=== PATIENT | female | born 1985 | race Caucasian/White ===

== ENCOUNTER 2018-09-12 08:42 | Emergency (ER) | payer OTHER ==
[2018-09-12 08:47] VITALS: BP 115/82; PULSE 77; TEMP 98.4; BMI 29.7
--- NOTE | 2018-09-12 08:58 | PDOC ---
History of Present Illness - General Chief Complaint: Abscess Boil Stated Complaint: BOIL BETWEEN BUTTOCKS. Time Seen by Provider: 09/12/18 08:49 - History of Present Illness Initial Comments: 09/12/18 09:22 Chief complaint: Swelling and pain anal area, difficulty defecating History of present illness: For several days the patient has noticed a lump in the area of her anus. It is painful and tender, especially with attempted bowel movement. No bleeding Review of systems: No fever/chills, abdominal pain, nausea, vomiting, diarrhea, urinary tract symptoms, vaginal bleeding or discharge Past medical history: Healthy female, no active medical problems. Similar swelling approximately 8 years ago. No surgery Social/family history reviewed and noncontributory Physical exam: Alert and oriented well-developed well-nourished no acute distress cheerful and cooperative Afebrile, vital signs normal Abdomen soft nontender without mass or organomegaly. Bowel sounds normal. Nondistended Rectal exam: Approximately 2 cm thrombosed external hemorrhoid at 12:00. Tender. No evidence of bleeding. No other mass or abscess. Impression: Thrombosed external hemorrhoid Plan: Discuss medical treatment and incision and drainage. The patient elects to forego surgical drainage of present, try medication, and follow-up as necessary if the medication is unsuccessful. She is advised sitz baths, stool softeners, and rectal preparations with cortisone to try to shrink the hemorrhoid. Given referral to Dr. Powell of surgery for follow-up as necessary. Fully ambulatory and in no acute pain or other distress upon discharge to follow -up as directed Past History - Past Medical History Allergies/Adverse Reactions: Allergies Allergy/AdvReac Type Severity Reaction Status Date / Time No Known Drug Allergies Allergy Verified 09/12/18 08:44 Home Medications: Ambulatory Orders No Home Medications 0 dose .ROUTE UTDICT 08/05/12 Docusate Sodium [Colace] 100 mg PO TID #15 capsule 09/12/18 Hydrocortisone 2.5% Topical Cr [Anusol 2.5% Hc Cream -] 1 applic RC BID #1 tube 09/12/18 Hydrocortisone Acetate [Anusol Hc Suppository -] 25 mg RC BID #10 supp.rect 08/28 Polyethylene Glycol 3350 [Miralax (For Daily Use) -] 17 gm PO DAILY #1 bottle Asthma: No Cancer: No Cardiac Disorders: No COPD: No Diabetes: No HTN: No Hypercholesterolemia: No Seizures: No Thyroid Disease: No Other medical history: pt denies - Suicide/Smoking/Psychosocial Hx Smoking Status: No Smoking History: Never smoked Have you smoked in the past 12 months: No Number of Cigarettes Smoked Daily: 0 Hx Alcohol Use: No Drug/Substance Use Hx: No Hx Substance Use Treatment: No *Physical Exam - Vital Signs Last Vital Signs Temp Pulse Resp BP Pulse Ox 98.4 F 77 18 115/82 100 09/12/18 08:43 09/12/18 08:43 09/12/18 08:43 09/12/18 08:43 09/12/18 08:43 *DC/Admit/Observation/Transfer Diagnosis at time of Disposition: Hemorrhoid thrombosis - Discharge Dispostion Disposition: HOME Condition at time of disposition: Stable Decision to Admit order: No - Prescriptions Prescriptions: Docusate Sodium [Colace] 100 mg PO TID #15 capsule Hydrocortisone 2.5% Topical Cr [Anusol 2.5% Hc Cream -] 1 applic RC BID #1 tube Hydrocortisone Acetate [Anusol Hc Suppository -] 25 mg RC BID #10 supp.rect Polyethylene Glycol 3350 [Miralax (For Daily Use) -] 17 gm PO DAILY #1 bottle - Referrals Referrals: Derrick Powell MD [Staff Physician] - - Patient Instructions Printed Discharge Instructions: DI for Hemorrhoids Additional Instructions: Sitz baths, soak in warm tub as much as possible. Medication as directed. If no improvement, surgical procedure may be necessary as discussed. See specialist as directed. Print Language: YAKUT - Post Discharge Activity Forms/Work/School Notes: Back to Work
== END 2018-09-12 09:16 | disposition home or self-care (01) ==
LOC: FER 08:42
DX: K64.5 Perianal venous thrombosis (principal)
CPT/HCPCS: 99281-25

== ENCOUNTER 2021-10-07 04:29 | Day surgery (SDC) | payer OTHER ==
[2021-10-04 11:56] VITALS: BMI 32.5
[2021-10-07 09:50] VITALS: TEMP 97.7
[2021-10-07 10:17] VITALS: BP 107/72; PULSE 69
== END 2021-10-07 10:47 | disposition home or self-care (01) ==
LOC: JASU-ENDO 04:29
PROVIDERS: ATTEND Internal Medicine Gastroenterology
PROC: 0DB78ZX Excision of Stomach, Pylorus, Via Natural or Artificial Opening Endoscopic, Diagnostic (ICD-10-PCS; 2021-10-07)
PROC: 0DB68ZX Excision of Stomach, Via Natural or Artificial Opening Endoscopic, Diagnostic (ICD-10-PCS; 2021-10-07)
PROC: 0DB98ZX Excision of Duodenum, Via Natural or Artificial Opening Endoscopic, Diagnostic (ICD-10-PCS; principal; 2021-10-07 09:15)
DX: K29.50 Unspecified chronic gastritis without bleeding (principal); B96.81 Helicobacter pylori [H. pylori] as the cause of diseases classified elsewhere; Z87.19 Personal history of other diseases of the digestive system; R10.13 Epigastric pain
CPT/HCPCS: 81025; 88305-TC; 88342-TC

== ENCOUNTER 2023-07-21 19:12 | Emergency (ER) | payer OTHER ==
[2023-07-21 19:26] VITALS: BP 115/83; PULSE 126; RESP 18; TEMP 101.2; BMI 31.6
[2023-07-21] MEDS ORDERED: ACETAMINOPHEN 500 MG TABLET (FP) ONE (20:13)
[2023-07-21] MEDS ORDERED: ACETAMINOPHEN INJECTION 100 ML IVPB ONE (20:13)
[2023-07-21] MEDS: SODIUM CHLORIDE 1,000 ML IV STA (20:36)
[2023-07-21] MEDS: ACETAMINOPHEN 1000 MG/100 ML BAG IVPB ONE (20:37)
[2023-07-21 20:45] LABS: HCG,QUALITATIVE URINE Negative
[2023-07-21 20:50] LABS: HEMATOCRIT 43.4 % (32.4-45.2); HEMOGLOBIN 14.9 G/dL (10.7-15.3); MCH 31.5 pg (25.7-33.7); MCHC 34.2 g/dl (32.0-36.0); MEAN CELL VOLUME 92.1 fl (80-96); MEAN PLT VOLUME 10.4 fl (7.5-11.1); PLATELET COUNT 199.7 10^3/uL (134-434); RBC 4.71 10^6/uL (3.60-5.2); RDW 13.4 % (11.6-15.6); WHITE BLOOD COUNT 5.7 10^3/uL (4.0-10.8)
[2023-07-21 20:58] LABS: URIC ACID CRYSTALS FEW /hpf (NONE SEEN)
[2023-07-21 21:01] LABS: PLATELET ESTIMATE ADEQUATE
[2023-07-21 21:09] LABS: ALBUMIN 4.6 g/dl (3.4-5.0); BILIRUBIN,TOTAL 0.4 mg/dl (0.2-1); CALCIUM 9.5 mg/dl (8.5-10.1); CREATININE 0.9 mg/dl (0.6-1.3); POTASSIUM 4.2 mmol/L (3.5-5.1); TOT PROT 7.3 g/dl (6.4-8.2)
== END 2023-07-21 21:57 | disposition home or self-care (01) ==
LOC: FER 19:12
PROC: 3E033NZ Introduction of Analgesics, Hypnotics, Sedatives into Peripheral Vein, Percutaneous Approach (ICD-10-PCS; principal; 2023-07-21)
PROC: 3E0337Z Introduction of Electrolytic and Water Balance Substance into Peripheral Vein, Percutaneous Approach (ICD-10-PCS; 2023-07-21)
DX: R50.9 Fever, unspecified (principal); M54.9 Dorsalgia, unspecified; R05.9 Cough, unspecified; B34.9 Viral infection, unspecified; Z20.822 Contact with and (suspected) exposure to COVID-19
CPT/HCPCS: 0241U-QW; 36415; 80053; 81003; 81015; 84703; 85027; 99284-25; J0131